=== PATIENT | male | born 1995 | race Caucasian/White ===

== ENCOUNTER 2016-06-09 07:48 | Inpatient (IN) | payer MEDICAID ==
[2016-06-09] VITALS (9 sets, daily range): BP systolic 120–143; BP diastolic 67–88; PULSE 66–92; RESP 15–18; TEMP 97.2–98.6; O2SAT 96–99
[~2016-06-09] VITALS: Ht 175.3 cm; Wt 68.5 kg
--- NOTE | 2016-06-09 07:57 | NUR ---
Patient to ER bed 05 to gown for evaluation. Side rails up. Report given to NIDIA Peterson.
--- NOTE | 2016-06-09 08:00 | NUR ---
pt. presented to the ER AAOx4 with his mother c/o epigastric pain and lower right quadrant abdominal pain. As per pt. the pain started yesterday morning, has not subsided, states that he has not been able to eat, pain got worse this morning 10/23, as per pt. pain comes and goes, vomiting once this morning, denies SOB, denies headache, vitals stable
--- NOTE | 2016-06-09 08:15 | NUR ---
dr. velasco at bedside examining the pt.
[2016-06-09 08:24] LABS: BILIRUBIN,URINE NEGATIVE (NEGATIVE); BLOOD, URINE NEGATIVE (NEGATIVE); CLARITY/URINE CLEAR (CLEAR); COLOR,URINE YELLOW (YELLOW); GLUCOSE,URINE NEGATIVE (NEGATIVE); KETONES,URINE 1+ (NEGATIVE); LEUKOCYTE ESTERASE ,URINE NEGATIVE (NEGATIVE); NITRITE, URINE NEGATIVE (NEGATIVE); PH,URINE 6.5 (5.0-8.0); PROTEIN URINE 1+ (NEGATIVE); UROBILINOGEN,URINE 0.2 (0.2-1.0)
[2016-06-09 08:30] LABS: HEMATOCRIT 49.3 % (36-54); HEMOGLOBIN 16.8 g/dL (14.0-18.0); MEAN CORPUSCULAR HEMOGLOBIN 30 pg (27-31); MEAN CORPUSCULAR HGB CONC 34 % (32-36); MEAN CORPUSCULAR VOLUME 89 fL (79.0-98.0); PLATELET COUNT (AUTO) 225 K/uL (130-430); RED BLOOD CELL COUNT(AUTO) 5.53 MIL/uL (4.2-6.2); WHITE BLOOD COUNT (AUTO) 19.1 K/uL (4.8-10.8)
--- NOTE | 2016-06-09 08:30 | NUR ---
# 22 gauge angiocath placed to lac. Use of asceptic technique. Opsite placed over site. Blood return noted. Flushed with 10 cc of normal saline. No evidence of infiltration noted. Patient tolerated well.
[2016-06-09 08:34] LABS: BACTERIA,URINE RARE /HPF (None Seen); MUCUS,URINE 2+ /LPF (None Seen); RBC,URINE 0-3 /HPF (0-3); WBC,URINE 0-3 /HPF (0-3)
--- NOTE | 2016-06-09 08:35 | NUR ---
pt. out to radiology ambulatory
[2016-06-09 08:41] LABS: CALCIUM 9.5 mg/dL (8.4-11.0); CREATININE 0.89 mg/dL (0.55-1.30); POTASSIUM 4.6 mmol/L (3.5-5.1)
[2016-06-09 08:46] LABS: ALBUMIN 4.6 g/dL (3.4-4.8); TOTAL BILIRUBIN 0.8 mg/dL (0.0-1.0); TOTAL PROTEIN, SERUM 8.3 g/dL (6.4-8.3)
[2016-06-09 09:40] LABS: BASOPHILS % (MANUAL) 0 % (0-2); EOSINOPHILS % (MANUAL) 0 % (0-7); LYMPHOCYTES % (MANUAL) 8 % (20-46); MONOCYTES % (MANUAL) 5 % (0-11)
[2016-06-09] MEDS ORDERED: PIPERACILLIN/TAZO 3.375 GM in NS 50 ML IV ONE (09:45)
--- NOTE | 2016-06-09 09:45 | NUR ---
pt. out to cat scan abdomen ambulatory
[2016-06-09] MEDS ORDERED: PIPERACILLIN/TAZOBACTAM 3.375 GM/VIAL (ZOSYN) IV ONE (09:53)
--- NOTE | 2016-06-09 10:00 | NUR ---
pt. back to the bed 5, mild pain to right lower quadrant, mother at bedside
--- NOTE | 2016-06-09 10:05 | NUR ---
zosyn admin iv lac 100ml/hr. as per MD orders
[2016-06-09] MEDS ORDERED: MORPHINE 2 MG/ML INJ. SYRINGE IVP PRN ×2 (11:15→15:30)
--- NOTE | 2016-06-09 11:15 | NUR ---
Patient will be admitted to care of DR. FRANKLIN. Admitted to MED SURG unit. Will go to room 126 B. Belongings list completed. Summary report printed. Report given to CHARGE NURSE
--- NOTE | 2016-06-09 11:20 | NUR ---
ADMISSION NOTE Received patient from ER via [facility], received report from DARREN JACOB. Patient admitted with diagnosis of APPENDICITIS. Patient oriented to hospital routine, call light, toileting and safety-patient verbalized understanding.
[2016-06-09] MEDS ORDERED: D5NS 1,000 ML IV SCH ×2 (11:45→18:00)
--- NOTE | 2016-06-09 12:11 | NUR ---
PAIN MEDICATION MORPHINE 2 MG WAS ADMINISTERED FOR 6/10 PAIN. PATIENT WAS EDUCATED ON CALLING FOR NURSE/HELP BEFORE GETTING UP FOR THE BATHROOM OR ANYTHING ELSE. EDUCATED ON PAIN MANAGEMENT AND PAIN MEDICATION SIDE-EFFECTS. PATIENT VERBALIZED UNDERSTANDING OF TEACHING AND CALLING FOR HELP. MOTHER AND FATHER AT BEDSIDE AND ALSO VERBALIZED UNDERSTANDING OF TEACHING.
--- NOTE | 2016-06-09 14:00 | NUR ---
NOTE: PATIENT IS RESTING COMFORTABLY IN BED. NO S/S OF DISTRESS OR SOB. PATIENT IS ALERT AND ORIENTED, ABLE TO EXPRESS NEEDS, AND ASK FOR ASSISTANCE. CALL LIGHT IN REACH, BED IN LOWEST POSITION, AND WILL CONTINUE TO MONITOR.
[2016-06-09] MEDS ORDERED: ZOLPIDEM TARTRATE 5 MG TABLET PO PRN (15:30)
[2016-06-09] MEDS ORDERED: LORazepam 2 MG/ML VIAL IVP PRN (15:30)
[2016-06-09] MEDS ORDERED: DOCUSATE SODIUM 100 MG CAPSULE PO PRN (15:30)
[2016-06-09] MEDS ORDERED: MAGNESIUM SULFATE 50 ML IV PRN (15:30)
[2016-06-09] MEDS ORDERED: POTASSIUM CHLORIDE 10 MEQ TAB.PRT.SR PO PRN (15:30)
[2016-06-09] MEDS ORDERED: ACETAMINOPHEN 325 MG TABLET PO PRN (15:30)
[2016-06-09] MEDS ORDERED: ONDANSETRON HCL 4 MG/2 ML VIAL IVP PRN ×2 (15:30→18:00)
--- NOTE | 2016-06-09 16:00 | NUR ---
NOTE: PATIENT IS RESTING COMFORTABLY IN BED. NO S/S OF DISTRESS OR SOB. PATIENT IS ALERT AND ORIENTED, ABLE TO EXPRESS NEEDS, AND ASK FOR ASSISTANCE. FAMILY AT BEDSIDE. CALL LIGHT IN REACH, BED IN LOWEST POSITION, AND WILL CONTINUE TO MONITOR.
[2016-06-09 17:01] LABS: INR 1.1 (0.80-1.20); PROTHROMBIN TIME 11.8 SECS (9.5-12.5)
--- NOTE | 2016-06-09 17:26 | NUR ---
OR Patient taken to OR
[2016-06-09] MEDS ORDERED: [UNRECOGNIZED DRUG - OTHER] TP ONE (17:30)
[2016-06-09] MEDS ORDERED: MORPHINE 4 MG/ML INJ. SYRINGE IVP PRN (18:00)
--- NOTE | 2016-06-09 18:14 | NUR ---
CLOSING NOTE: PATIENT IS IN OR. WILL GIVE REPORT TO NIGHT NURSE.
[2016-06-09] MEDS ORDERED: LR 1,000 ML IV SCH (18:25)
[2016-06-09] MEDS ORDERED: MEPERIDINE HCL/PF 25 MG/ML DISP.SYRIN IVP PRN (18:30)
[2016-06-09] MEDS ORDERED: HYDROmorphone 1 MG INJ. 1 MG/ML AMPUL IVP PRN (18:30)
[2016-06-09] MEDS ORDERED: HYDROmorphone 2 MG/ML VIAL IVP PRN ×2 (18:30)
--- NOTE | 2016-06-09 19:40 | NUR ---
ROUNDS PATIENT IN BED, AWAKE, ALERT, ORIENTED, S/P LAP APPY, VITALS STABLE, DENIES ANY PAIN AND DISCOMFORT AT THIS TIME. ASSESSMENT DONE AND DOCUMENTED. SEE FLOWSHEET. NEEDS ATTENDED TO. REPOSITIONED AND MADE COMFORTABLE. SAFETY AND FALL PRECAUTION MEASURES IN PLACED. BED IN LOW AND LOCKED POSITION. CALL LIGHT PLACED WITHIN REACH.
--- NOTE | 2016-06-09 20:11 | NUR ---
PAIN PATIENT C/O PAIN IN THE ABDOMEN, 6/10 PAIN SCALE, MORPHINE 2 MG IV GIVEN ORDERED PRN. SIDE EFFECTS OF MEDICATION DISCUSSED AND PATIENT VERBALIZED UNDERSTANDING. CALL LIGHT PLACED WITH PATIENT.
--- NOTE | 2016-06-10 | NUR ---
PATIENT RESTING: Patient resting quietly. No acute distress noted. Vital signs within normal range.
--- NOTE | 2016-06-10 02:20 | NUR ---
ROUNDS PATIENT ASLEEP, NO PAIN AND DISCOMFORT NOTED. WILL CONTINUE TO MONITOR.
[2016-06-10 04:01] VITALS: BP 102/50; PULSE 56; RESP 16; TEMP 98.6; O2SAT 97
--- NOTE | 2016-06-10 04:10 | NUR ---
PATIENT RESTING: Patient resting quietly. No acute distress noted. Vital signs within normal range.
--- NOTE | 2016-06-10 06:35 | NUR ---
CLOSING NOTES PATIENT STILL ASLEEP, VITALS STABLE, NO PAIN AT THIS TIME. ALL NEEDS ATTENDED TO. SAFETY MEASURES MAINTAINED. CALL LIGHT PLACED WITHIN REACH.
--- NOTE | 2016-06-10 07:45 | NUR ---
INITIAL NOTES RECEIVED PATIENT ON BED ASLEEP WITH MOTHER AT BEDSIDE.BREATHING EVEN AND UNLABORED.NO ACUTE DISTRESS.CHECKED SURGICAL SITES;DRESSINGS DRY CLEAN AND INTACT.SAFETY AND FALL PRECAUTIONS IN PLACE.CALL LIGHT WITHIN REACH
[2016-06-10 07:59] VITALS: BP 106/64; PULSE 76; RESP 18; TEMP 98; O2SAT 98
[2016-06-10 09:07] LABS: BASOPHILS # (AUTO) 0.1 K/uL (0.0-0.2); BASOPHILS % (AUTO) 0.5 % (0.0-2.0); HEMATOCRIT 44.7 % (36-54); HEMOGLOBIN 15.1 g/dL (14.0-18.0); LYMPHOCYTES # (AUTO) 1.8 K/uL (1.0-5.5); LYMPHOCYTES % (AUTO) 16.9 % (20.5-51.5); MEAN CORPUSCULAR HEMOGLOBIN 31 pg (27-31); MEAN CORPUSCULAR HGB CONC 34 % (32-36); MEAN CORPUSCULAR VOLUME 91 fL (79.0-98.0); MONOCYTES # (AUTO) 0.7 K/uL (0.0-1.0); MONOCYTES % (AUTO) 6.3 % (1.7-9.3); NEUTROPHILS # (AUTO) 8.2 K/uL (1.8-7.7); NEUTROPHILS % (AUTO) 76.3 % (40.0-70.0); PLATELET COUNT (AUTO) 200 K/uL (130-430); RED BLOOD CELL COUNT(AUTO) 4.91 MIL/uL (4.2-6.2); WHITE BLOOD COUNT (AUTO) 10.8 K/uL (4.8-10.8)
--- NOTE | 2016-06-10 10:30 | NUR ---
NOTES PATIENT AMBULATED TO THE RESTROOM WITH SUPERVISION OF MOTHER;TOLERATED ACTIVITY WELL
[2016-06-10 11:46] VITALS: BP 115/60; PULSE 51; RESP 19; TEMP 97.1; O2SAT 100
--- NOTE | 2016-06-10 13:00 | NUR ---
NOTES DR. BURDEN CALLED AND GAVE A CLEARANCE FOR THE PATIENT TO GO HOME
--- NOTE | 2016-06-10 14:11 | NUR ---
NOTES PAGED TO OBTAIN DISCHARGE ORDER;AWAITING FOR CALL BACK
--- NOTE | 2016-06-10 14:25 | NUR ---
NOTES DR. FRANKLIN CALLED BACK;INFORMED REGARDING DR. BURDEN'S RECOMMENDATION TO DISCHARGE PATIENT SAID OKAY;CARRIED OUT
[2016-06-10 14:58] VITALS: BP 115/60; PULSE 51; RESP 19; TEMP 97.1; O2SAT 100
[2016-06-10] MEDS ORDERED: NS IRRIG SOLN 1000 ML IR ONE (15:44)
[2016-06-10] MEDS ORDERED: SEVOFLURANE 15 MIN GAS INH ONE (15:44)
[2016-06-10] MEDS ORDERED: fentaNYL CITRATE 250 MCG/5 ML AMP IV ONE (15:44)
[2016-06-10] MEDS ORDERED: SUCCINYLCHOLINE CHLORIDE 20 MG/ML(QUELICIN) IVP ONE (15:44)
[2016-06-10] MEDS ORDERED: LR 1,000 ML IV.SOLN IV ONE (15:44)
[2016-06-10] MEDS ORDERED: DEXAMETHASONE SOD PHOSPHATE 4 MG/ML VIAL IVP ONE (15:44)
[2016-06-10] MEDS ORDERED: PROPOFOL 200MG/ 20ML VIAL (DIPRIVAN) IV ONE (15:44)
[2016-06-10] MEDS ORDERED: PIPERACILLIN/TAZOBACTAM 3.375 GM/VIAL (ZOSYN) IV ONE (15:44)
[2016-06-10] MEDS ORDERED: ROCURONIUM BROMIDE 10 MG/ML (ZEMURON) IV ONE (15:44)
[2016-06-10] MEDS ORDERED: KETOROLAC TROMETHAMINE 30 MG VIAL IVP ONE (15:44)
[2016-06-10] MEDS ORDERED: BUPIVACAINE /PF 0.25% 30 ML VIAL INJ ONE (15:44)
[2016-06-10] MEDS ORDERED: ONDANSETRON HCL 4 MG/2 ML VIAL IVP ONE (15:44)
[2016-06-10 15:54] VITALS: BP 112/68; PULSE 71; RESP 18; TEMP 98; O2SAT 97
== END 2016-06-10 15:45 | disposition home or self-care (01) | DRG 710 ==
LOC: SED 07:48 → SMU 11:15
PROVIDERS: ADMIT General Practice; ATTEND General Practice
PROC: 0DTJ4ZZ Resection of Appendix, Percutaneous Endoscopic Approach (ICD-10-PCS; principal; 2016-06-09 15:00)
DX: A41.9 Sepsis, unspecified organism (principal); K35.80 Unspecified acute appendicitis
CPT/HCPCS: 36415; 74000-TC; 80053; 81000-TC; 83605; 85007; 85025; 85027; 85610-TC; 87040-TC; 87070; 87081; 88304; 96365; 99285; C1727; J0330; J1100; J1885; J2270; J2405; J2543; J2704; J3010; J3490; J7042; J7120

== ENCOUNTER 2016-06-29 22:19 | Emergency (ER) | payer MEDICAID ==
[~2016-06-29] VITALS: Ht 172.7 cm; Wt 59.9 kg
[2016-06-29 23:39] VITALS: BP_SYST 115
[2016-06-30 00:12] LABS: BILIRUBIN,URINE NEGATIVE (NEGATIVE); BLOOD, URINE NEGATIVE (NEGATIVE); CLARITY/URINE CLEAR (CLEAR); COLOR,URINE YELLOW (YELLOW); GLUCOSE,URINE NEGATIVE (NEGATIVE); KETONES,URINE NEGATIVE (NEGATIVE); LEUKOCYTE ESTERASE ,URINE NEGATIVE (NEGATIVE); NITRITE, URINE NEGATIVE (NEGATIVE); PROTEIN URINE NEGATIVE (NEGATIVE); UROBILINOGEN,URINE 0.2 (0.2-1.0)
[2016-06-30 01:51] VITALS: BP_SYST 112
== END 2016-06-30 01:51 | disposition home or self-care (01) ==
LOC: SED 22:19
DX: N50.3 Cyst of epididymis (principal); Z90.49 Acquired absence of other specified parts of digestive tract
CPT/HCPCS: 76870; 81003; 99285; J7030